=== PATIENT | female | born 1955 | race Caucasian/White ===

== ENCOUNTER 2017-07-13 09:48 | Emergency (ER) | payer BC ==
[~2017-07-13] VITALS: Ht 170.2 cm; Wt 65.8 kg
[2017-07-13 09:59] VITALS: BP_SYST 108
[2017-07-13] MEDS ORDERED: ONDANSETRON 4 MG ODT TAB PO ONE (12:00)
[2017-07-13] MEDS ORDERED: IBUPROFEN 800 MG TABLET PO ONE (12:30)
[2017-07-13 12:40] VITALS: BP_SYST 104
== END 2017-07-13 12:40 | disposition home or self-care (01) ==
LOC: SED 09:48
DX: S52.592A Other fractures of lower end of left radius, initial encounter for closed fracture (principal); W18.39XA Other fall on same level, initial encounter; Y93.I9 Activity, other involving external motion; Y99.8 Other external cause status; Y92.89 Other specified places as the place of occurrence of the external cause
CPT/HCPCS: 29125; 73110; 99284; Q0162